=== PATIENT | male | born 1960 | race Asian ===

== ENCOUNTER 2021-07-13 08:30 | Emergency (ER) | payer MEDICAID ==
[~2021-07-13] VITALS: Ht 162.6 cm; Wt 84.8 kg
[2021-07-13] MEDS ORDERED: NITROGLYCERIN 0.4 MG/TAB BOTTLE ONE (08:56)
[2021-07-13] MEDS ORDERED: ASPIRIN 81 MG TAB.CHEW ONE (08:56)
[2021-07-13] MEDS ORDERED: ASPIRIN 81 MG TAB.CHEW PO ONE (09:00)
[2021-07-13] MEDS ORDERED: NITROGLYCERIN 0.4 MG/TAB BOTTLE SL ONE (09:00)
[2021-07-13 09:03] LABS: BASOPHILS # (AUTO) 0.1 K/uL (0.0-0.2); BASOPHILS % (AUTO) 0.5 % (0.0-2.0); EOSINOPHILS % (AUTO) 0.7 % (0.0-6.0); HEMATOCRIT 48 % (39-51); HEMOGLOBIN 15.8 g/dL (13.5-17.5); LYMPHOCYTES # (AUTO) 1.8 K/uL (0.8-4.8); LYMPHOCYTES % (AUTO) 11.6 % (20.0-44.0); MEAN CORPUSCULAR HGB CONC 33 g/dl (31.0-36.0); MEAN CORPUSCULAR VOLUME 97 fL (80-96); MONOCYTES % (AUTO) 6.4 % (2.0-12.0); NEUTROPHILS # (AUTO) 12.5 K/uL (1.8-8.9); NEUTROPHILS % (AUTO) 80.8 % (43.0-81.0); PLATELET COUNT (AUTO) 265 K/uL (150-450); RED BLOOD CELL COUNT(AUTO) 4.92 MIL/uL (4.5-6.0); WHITE BLOOD COUNT (AUTO) 15.4 K/uL (4.3-11.0)
[2021-07-13 09:05] VITALS: BP 179/109
[2021-07-13 09:27] LABS: CALCIUM, SERUM 8.8 mg/dL (8.5-10.1); CREATININE 1.2 mg/dL (0.6-1.3); POTASSIUM 3.5 mmol/L (3.5-5.1)
== END 2021-07-13 09:08 | disposition short-term general hospital (02) ==
LOC: ER 08:40
DX: I21.3 ST elevation (STEMI) myocardial infarction of unspecified site (principal); Z20.822 Contact with and (suspected) exposure to COVID-19; I10 Essential (primary) hypertension; E78.5 Hyperlipidemia, unspecified
CPT/HCPCS: 36415; 71045; 80048; 84484; 85025; 87426; 93005; 99291; C9803